=== PATIENT | male | born 1990 | race Caucasian/White ===

== ENCOUNTER 2017-01-20 08:52 | Emergency (ER) | payer SELFPAY ==
[2017-01-20 09:12] VITALS: BP 117/80; PULSE 76; TEMP 98; BMI 25.4
--- NOTE | 2017-01-20 09:29 | PDOC ---
History of Present Illness - General History Source: Patient - History of Present Illness Presenting Symptoms: Chest Pain Timing/Duration: reports: intermittent Severity/Quality: reports: sharp Chest Pain Radiation: reports: arms <Rosette Agudelo - Last Filed: 01/20/17 10:35> <Terrence Ahumadaan - Last Filed: 01/24/17 07:12> - General Chief Complaint: Chest Pain Stated Complaint: CHEST PAIN Time Seen by Provider: 01/20/17 09:12 Past History - Past Medical History Cardiac Disorders: No (murmur) - Psycho/Social/Smoking Cessation Hx Anxiety: No Suicidal Ideation: No Smoking History: Never smoked Have you smoked in the past 12 months: No Information on smoking cessation initiated: No Hx Alcohol Use: No Drug/Substance Use Hx: No Substance Use Type: None <Rosette Agudelo Last Filed: 01/20/17 10:35> <Terrence Ahumadaan - Last Filed: 01/24/17 07:12> - Past Medical History Allergies/Adverse Reactions: Allergies Allergy/AdvReac Type Severity Reaction Status Date / Time formula with iron Allergy Verified 01/20/17 09:09 [From Lactofree] formula, lactose-free Allergy Verified 01/20/17 09:09 [From Lactofree] Home Medications: Ambulatory Orders NK [No Known Home Medication] 01/20/17 Review of Systems - Review of Systems Constitutional: No: Chills, Fever Respiratory: Yes: Shortness of Breath. No: Cough Cardiac (ROS): Yes: Chest Pain, Lightheadedness. No: Palpitations, Syncope <Rosette Agudelo Last Filed: 01/20/17 10:35> *Physical Exam - Physical Exam General Appearance: Yes: Appropriately Dressed HEENT: positive: Normal Voice Neck: positive: Supple Respiratory/Chest: positive: Lungs Clear, Normal Breath Sounds. negative: Respiratory Distress Cardiovascular: positive: Regular Rate, S1, S2 Integumentary: positive: Dry, Warm Neurologic: positive: Fully Oriented, Alert, Normal Mood/Affect <Rosette Agudelo Last Filed: 01/20/17 10:35> <Jayy Ahumada - Last Filed: 01/24/17 07:12> - Vital Signs Last Vital Signs Temp Pulse Resp BP Pulse Ox 98.0 F 76 18 117/80 100 01/20/17 09:09 01/20/17 09:09 01/20/17 09:09 01/20/17 09:09 01/20/17 09:09 - Physical Exam Comments: 01/20/17 09:29 appears mildly anxious (Rosette Agudelo) Heart Score/ECG Review <Rosette Agudelo - Last Filed: 01/20/17 10:35> <Jayy Ahumada - Last Filed: 01/24/17 07:12> - ECG Intrepretation Comment:: 01/20/17 10:37 Twelve-lead EKG was performed and reviewed by me. There is normal sinus rhythm with a normal rate. The axis is normal. The intervals are normal. There are no ST or T wave abnormalities. Impression: Normal twelve-lead EKG (Rosette Agudelo) ED Treatment Course - LABORATORY CBC & Chemistry Diagram: 01/20/17 09:30 01/20/17 09:30 <Rosette Agudelo - Last Filed: 01/20/17 10:35> - LABORATORY CBC & Chemistry Diagram: 01/20/17 09:30 01/20/17 09:30 <Jayy Ahumada - Last Filed: 01/24/17 07:12> - ADDITIONAL ORDERS Additional order review: 01/20/17 09:30 RBC 5.06 MCV 91.5 MCHC 33.9 RDW 12.9 MPV 8.1 Neutrophils % 61.3 Lymphocytes % 28.4 Monocytes % 8.2 Eosinophils % 1.2 Basophils % 0.9 Medical Decision Making <Rosette Agudelo - Last Filed: 01/20/17 10:35> <aJyy Ahumada - Last Filed: 01/24/17 07:12> - Medical Decision Making 01/20/17 09:22 26-year-old male, history of possible anxiety, not on any medications, here with chest pain. Patient states for the past 2 days, he's had intermittent left -sided chest pain radiating to left arm with numbness of left arm. States pain worsened yesterday, was sharp, 10/10 and constant all night and states he was unable to sleep. Patient also states he was dizzy and possibly short of breath while driving to the ER today. No diaphoresis, palpitations, nausea, vomiting, leg pain or swelling. Patient admits he has had similar pain on and off in the past and was told during a pre-employment physical 1 month ago that he might have a "heart murmur" but was not referred to a service advocate contact and patient does not currently have a PMD. Patient states he feels that he does suffer from anxiety which he describes as episodes of sudden onset of palpitations, with feelings of losing control and insomnia. States symptoms usually resolve and has never been to the ER. Patient admits to multiple stressors including working multiple jobs. Denies illicit drug use. No significant family history. See exam Recurrent CP Possible anxiety, unlikely ACS and PERCs out Appears mildly anxious in ED but stable w/ unremarkable exam -declines ativan at this time -ekg -CXR -labs including TSH -reassess -anticipate discharged w/ referral to PMD and possibly cards 01/20/17 09:30 01/20/17 10:37 EKG, chest x-ray and labs are all normal. Patient has remained stable in ED and reports feeling better at this time. Will discharge with referral to PMD and cardiology (Rosette Agudelo) The patient was seen and evaluated in conjunction with JUVENTINO Agudelo under my direct supervision, ancillary studies were reviewed. I independently interviewed and evaluated the patient and I agree with the plan as outlined by JUVENTINO Agudelo . (Jayy Ahumada) *DC/Admit/Observation/Transfer <Rosette Agudelo - Last Filed: 01/20/17 10:35> <Jayy Ahumada - Last Filed: 01/24/17 07:12> Diagnosis at time of Disposition: Chest pain Qualifiers: Chest pain type: unspecified Qualified Code(s): R07.9 - Chest pain, unspecified - Discharge Dispostion Disposition: HOME Condition at time of disposition: Good - Referrals Referrals: Braxton Mondragon MD [Staff Physician] - Charlie Colon MD [Staff Physician] - - Patient Instructions Printed Discharge Instructions: DI for Atypical Chest Pain Additional Instructions: The cause of her chest pain is unclear at this time as your EKG, chest x-ray and labs are all normal. Please follow-up with Dr. Braxton Mondragon and also Dr. Colon of cardiology
[2017-01-20 09:42] LABS: BASOPHIL 0.9 % (0-2.0); EOSINOPHIL 1.2 % (0-4.5); MCHC 33.9 g/dl (32.0-35.9); MEAN CELL VOLUME 91.5 fl (80-96); MEAN PLT VOLUME 8.1 fl (7.5-11.1); NEUTROPHILS 61.3 % (42.8-82.8); PLATELET COUNT 251 K/MM3 (134-434); RDW 12.9 % (11.9-15.9); WHITE BLOOD COUNT 8.4 K/mm3 (4.0-10.0)
[2017-01-20 10:07] LABS: ALBUMIN 4.2 g/dl (3.4-5.0); ANION GAP 8 (8-16); BILIRUBIN,TOTAL 0.6 mg/dL (0.2-1.0); CALCIUM 9.3 mg/dL (8.5-10.1); CO2 27 mmol/L (21-32); CREATININE 0.8 mg/dL (0.7-1.3); GLUCOSE,RANDOM 83 mg/dL (74-106); SGOT/AST 8 U/L (15-37); SGPT/ALT 24 U/L (12-78); TOT PROT 7.3 g/dl (6.4-8.2)
[2017-01-20 10:08] LABS: ALK PHOS 73 U/L (45-117)
[2017-01-20 10:09] LABS: CPK 152 IU/L (39-308); TROPONIN I < 0.02 ng/ml (0.00-0.05)
[2017-01-20 11:10] LABS: URINE APPEARANCE CLEAR; URINE BILIRUBIN NEGATIVE (NEGATIVE); URINE BLOOD NEGATIVE (NEGATIVE); URINE COLOR LT. YELLOW; URINE GLUCOSE (UA) NEGATIVE (NEGATIVE); URINE KETONE NEGATIVE (NEGATIVE); URINE LEUK ESTERASE NEGATIVE (NEGATIVE); URINE NITRITE NEGATIVE (NEGATIVE); URINE PROTEIN NEGATIVE (NEGATIVE); URINE UROBILINOGEN 0.2 mg/dL (0.2-1.0)
[2017-01-20 11:20] LABS: URINE MARIJUANA THC NEGATIVE ng/ml (CUTOFF=50)
--- NOTE | 2017-01-20 12:21 | EKG ---
Test Reason : Blood Pressure : / mmHG Vent. Rate : 074 BPM Atrial Rate : 074 BPM P-R Int : 142 ms QRS Dur : 090 ms QT Int : 374 ms P-R-T Axes : 063 066 047 degrees QTc Int : 415 ms NORMAL SINUS RHYTHM RSR' IN V2 NO PREVIOUS ECGS AVAILABLE REPEAT EKG IF CLINICALLY INDICATED Confirmed by SALVADOR MEHTA MD ([id number]) on 01/20/2017 12:21:32 PM Referred By: Confirmed By:SALVADOR MEHTA MD
== END 2017-01-20 11:05 | disposition home or self-care (01) ==
LOC: JER 08:52
DX: R07.89 Other chest pain (principal)
CPT/HCPCS: 36415; 71020-TC; 80053; 80307; 81003; 82553; 84443; 84484; 85025; 93005; 93010; 99285-25

== ENCOUNTER 2017-03-02 19:25 | Emergency (ER) | payer SELFPAY ==
[2017-03-02 19:37] VITALS: BP 128/75; PULSE 62; TEMP 98.2; BMI 24.2
--- NOTE | 2017-03-02 20:20 | PDOC ---
History of Present Illness - General Chief Complaint: Headache Stated Complaint: HEAD INJURY Time Seen by Provider: 03/02/17 20:01 History Source: Patient Exam Limitations: No Limitations - History of Present Illness Initial Comments: 03/02/17 20:15 Mild tenderness and sts to right temporal area scalp post hair cut of 2 days ago ; no fever Timing/Duration: reports: increasing Severity: Yes: mild Associated Symptoms: denies: fever/chills, nausea/vomiting, ringing in ears Past History - Past Medical History Allergies/Adverse Reactions: Allergies Allergy/AdvReac Type Severity Reaction Status Date / Time formula with iron Allergy Verified 03/02/17 19:34 [From Lactofree] formula, lactose-free Allergy Verified 03/02/17 19:34 [From Lactofree] lactose Allergy Verified 03/02/17 19:34 Home Medications: Ambulatory Orders NK [No Known Home Medication] 01/20/17 Cardiac Disorders: No (murmur) - Suicide/Smoking/Psychosocial Hx Smoking History: Never smoked Have you smoked in the past 12 months: No Information on smoking cessation initiated: No Hx Alcohol Use: No Drug/Substance Use Hx: No Substance Use Type: None Review of Systems - Review of Systems Constitutional: No: Chills, Fever HEENTM: No: Symptoms Reported Respiratory: No: Symptoms reported Cardiac (ROS): No: Symptoms Reported Musculoskeletal: No: Symptoms Reported Integumentary: Yes: Lesions, Lumps (right temporal area) *Physical Exam - Vital Signs Last Vital Signs Temp Pulse Resp BP Pulse Ox 98.2 F 62 18 128/75 100 03/02/17 19:34 03/02/17 19:34 03/02/17 19:34 03/02/17 19:34 03/02/17 19:34 - Physical Exam General Appearance: Yes: Appropriately Dressed. No: Apparent Distress HEENT: positive: Other (3 cm tender circular area with slight redness to right temporal area) Medical Decision Making - Medical Decision Making 03/02/17 20:18 will treat for early abcess to temporal area post hiar shaving *DC/Admit/Observation/Transfer Diagnosis at time of Disposition: Cellulitis of scalp - Discharge Dispostion Disposition: HOME Condition at time of disposition: Stable Admit: No - Patient Instructions Additional Instructions: return to ED in 3 days; start bactrim; use warm soaks to area
== END 2017-03-02 20:34 | disposition home or self-care (01) ==
LOC: JERFT 19:25
DX: L03.811 Cellulitis of head [any part, except face] (principal)
CPT/HCPCS: 99281-25